=== PATIENT | male | born 1990 | race Caucasian/White ===

== ENCOUNTER 2022-08-13 03:48 | Emergency (ER) | payer SELFPAY ==
[~2022-08-13] VITALS: Ht 172.7 cm; Wt 85.0 kg
[2022-08-13 04:00] VITALS: BP 136/59
== END 2022-08-13 04:39 | disposition home or self-care (01) ==
LOC: EMS 03:52
DX: S61.011A Laceration without foreign body of right thumb without damage to nail, initial encounter (principal); W26.0XXA Contact with knife, initial encounter; Y93.89 Activity, other specified; Y92.89 Other specified places as the place of occurrence of the external cause; Y99.8 Other external cause status
CPT/HCPCS: 12001; 99282; Z7502